=== PATIENT | female | born 1970 | race African-American/Black ===

== ENCOUNTER 2018-09-06 10:50 | Inpatient (IN) | payer MEDICAID ==
[~2018-09-06] VITALS: Ht 162.6 cm; Wt 58.5 kg
[~2018-09-06 10:50] MED LIST: ALBU25PO2 MC; BECL8.7A6 IH; GABA-529 PO; HUMALOG; MULT-1116 PO; SIMV10TA6 PO
[2018-09-06] MEDS ORDERED: SODIUM CHLORIDE 0.9% 1,000 ML IV ONE ×2 (11:05→13:17)
[2018-09-06 11:27] LABS: BG BASE EXCESS -0.2 mmol/L (-2.0-2.0); BG CARBOXYHEMOGLOBIN 1.3 % (0.5-1.5); BG DEOXYHEMOGLOBIN 4.8 % (0.0-5.0); BG HCO3 ACT 24.7 mmol/L (22.0-26.0); BG METHEMOGLOBIN 0.3 % (0.0-1.5); BG OXYGEN SATURATION 95.1 % (92.0-98.5); BG OXYHEMOGLOBIN 93.6 % (94.0-97.0); BG PCO2 41.3 mmHg (35.0-45.0); BG PH 7.395 (7.350-7.450); BG PO2 78.8 mmHg (75.0-100.0); BG SAMPLE SITE RIGHT RADIAL; BG TOTAL HEMOGLOBIN 15.7 g/dL (12.0-18.0); BG VENT MODE ROOM AIR
[2018-09-06] MEDS ORDERED: ONDANSETRON HCL 4MG/2ML INJ IV ONE (12:15)
[2018-09-06 12:35] LABS: BASOPHILS % 1.4 % (0.0-2.0); EOSINOPHILS % 3.5 % (0.0-5.0); HEMATOCRIT. 50.6 % (36.0-48.0); HEMOGLOBIN. 16.1 g/dL (12.0-16.0); LYMPHOCYTES % 29.5 % (20.0-50.0); MEAN CORPUSCULAR HEMOGLOBIN 27.9 pg (28.0-32.0); MEAN CORPUSCULAR VOLUME 87.6 fL (81.0-99.0); MEAN PLATELET VOLUME 10.7 fl (7.4-10.4); MONOCYTES % 9.6 % (2.0-8.0); PLATELET 277 x1000/uL (130-400); RED BLOOD CELL COUNT 5.77 mill/uL (4.2-5.4); RED CELL DISTRIBUTION WIDTH 13.4 % (11.6-14.6)
[2018-09-06 12:49] LABS: CHLORIDE 80 mEq/L (98-107)
[2018-09-06 13:00] LABS: BETA HYDROXYBUTYRATE 5.3 mMol/L (0.0-0.3)
[2018-09-06] MEDS ORDERED: INSULIN REGULAR (HUMULIN R) 300UNITS/3ML IV ONE ×2 (13:30→13:45)
[2018-09-06 15:47] VITALS: BP 110/68
[2018-09-06] MEDS ORDERED: DEXTROSE 50% WATER 50ML SYRINGE IV PRN (16:45)
[2018-09-06] MEDS ORDERED: ONDANSETRON HCL 4MG/2ML INJ IV PRN (16:45)
[2018-09-06] MEDS: BLOOD SUGAR DIAGNOSTIC STRIP TEST SCH ×2 (17:18→21:22)
[2018-09-06] MEDS: ACETAMINOPHEN 325MG TABLET PO PRN ×2 (17:54→22:05)
[2018-09-06] MEDS: INSULIN LISPRO 100 UNITS/ML SUBCUT SCH ×2 (17:55→21:39)
[2018-09-06] MEDS ORDERED: SODIUM CHLORIDE 0.45% 1,000 ML IV SCH (18:00)
[2018-09-06 18:31] LABS: CHLORIDE 95 mEq/L (98-107)
[2018-09-06 20:00] VITALS: BP 104/61
[2018-09-06] MEDS: SODIUM CHLORIDE 0.45% 1,000 ML IV SCH (21:30)
[2018-09-06] MEDS ORDERED: INSULIN GLARGINE UD 100 UNITS/ML SYR SUBCUT SCH ×2 (22:00)
[2018-09-07] VITALS: BP 98/57
[2018-09-07 04:00] VITALS: BP 105/60
[2018-09-07] MEDS: BLOOD SUGAR DIAGNOSTIC STRIP TEST SCH (06:23)
[2018-09-07] MEDS: SODIUM CHLORIDE 0.45% 1,000 ML IV SCH (06:26)
[2018-09-07] MEDS: INSULIN LISPRO 100 UNITS/ML SUBCUT SCH (06:34)
[2018-09-07 07:48] LABS: BASOPHILS % 1.3 % (0.0-2.0); EOSINOPHILS % 4.6 % (0.0-5.0); HEMATOCRIT. 41.5 % (36.0-48.0); HEMOGLOBIN. 13.4 g/dL (12.0-16.0); LYMPHOCYTES % 37.1 % (20.0-50.0); MEAN CORPUSCULAR HEMOGLOBIN 27.6 pg (28.0-32.0); MEAN CORPUSCULAR VOLUME 85.6 fL (81.0-99.0); MEAN PLATELET VOLUME 9.7 fl (7.4-10.4); MONOCYTES % 12.1 % (2.0-8.0); NEUTROPHILS % 44.9 % (40.0-76.0); PLATELET 251 x1000/uL (130-400); RED BLOOD CELL COUNT 4.85 mill/uL (4.2-5.4); RED CELL DISTRIBUTION WIDTH 13.4 % (11.6-14.6)
[2018-09-07 08:27] LABS: CHLORIDE 97 mEq/L (98-107)
[2018-09-07 08:30] VITALS: BP 94/58
[2018-09-07 09:47] VITALS: BP 94/60
[2018-09-07] MEDS: ACETAMINOPHEN 325MG TABLET PO PRN (09:57)
[2018-12-22] MEDS ORDERED: ONDA4TAB5 MT ×2 (18:16)
[2018-12-22] MEDS ORDERED: METO-293 MT (18:16)
== END 2018-09-07 12:00 | disposition home or self-care (01) | DRG 420 ==
LOC: ER 11:29 → 8WST 13:36 → ENRESERV 14:08
PROVIDERS: ADMIT Internal Medicine; ATTEND Internal Medicine
DX: E10.65 Type 1 diabetes mellitus with hyperglycemia (principal); E87.8 Other disorders of electrolyte and fluid balance, not elsewhere classified; E87.5 Hyperkalemia; E87.1 Hypo-osmolality and hyponatremia; J45.909 Unspecified asthma, uncomplicated; Z79.4 Long term (current) use of insulin; Z79.51 Long term (current) use of inhaled steroids; Z79.899 Other long term (current) drug therapy
CPT/HCPCS: 36415; 36600; 71045; 80048; 81025; 82010; 82375; 82805; 82962; 84484; 93005; 96361; 96372; 96374; 99285; J1815; J2405; J7030

== ENCOUNTER 2018-12-20 00:46 | Inpatient (IN) | payer MEDICAID ==
[~2018-12-20] VITALS: Ht 160 cm; Wt 59.9 kg
[2018-12-20] VITALS (14 sets, daily range): BP systolic 91–129; BP diastolic 54–91
[2018-12-20] MEDS ORDERED: SODIUM CHLORIDE 0.9% 1,000 ML IV ONE ×2 (01:36→04:44)
[2018-12-20] MEDS ORDERED: ONDANSETRON HCL 4MG/2ML INJ IV STA (01:36)
[2018-12-20 02:23] LABS: CLARITY URINE CLEAR (CLEAR); COLOR URINE YELLOW (YELLOW); KETONES URINE 4+ (NEGATIVE); LEUKOCYTE ESTERASE URINE NEGATIVE (NEGATIVE); NITRITE URINE NEGATIVE (NEGATIVE); OCCULT BLOOD URINE 1+ (NEGATIVE); PROTEIN URINE NEGATIVE (NEGATIVE); SPECIFIC GRAVITY URINE 1.023 (1.005-1.030); UROBILINOGEN URINE 0.2 E.U./dL (0.2-1.0)
[2018-12-20 02:41] LABS: BASOPHILS % 0.9 % (0.0-2.0); EOSINOPHILS % 0.1 % (0.0-5.0); HEMATOCRIT. 44.7 % (36.0-48.0); HEMOGLOBIN. 14.2 g/dL (12.0-16.0); LYMPHOCYTES % 7.2 % (20.0-50.0); MEAN CORPUSCULAR HEMOGLOBIN 27.9 pg (28.0-32.0); MEAN CORPUSCULAR VOLUME 87.9 fL (81.0-99.0); MEAN PLATELET VOLUME 10.2 fl (7.4-10.4); MONOCYTES % 9.6 % (2.0-8.0); NEUTROPHILS % 82.2 % (40.0-76.0); PLATELET 296 x1000/uL (130-400); RED BLOOD CELL COUNT 5.08 mill/uL (4.2-5.4); RED CELL DISTRIBUTION WIDTH 14.1 % (11.6-14.6)
[2018-12-20 02:46] LABS: CHLORIDE 84 mEq/L (98-107)
[2018-12-20 03:06] LABS: HCG SCREEN NEGATIVE
[2018-12-20 03:25] LABS: BETA HYDROXYBUTYRATE 11.7 mMol/L (0.0-0.3)
[2018-12-20] MEDS ORDERED: INSULIN REGULAR (HUMULIN R) 300UNITS/3ML IV ONE (03:45)
[2018-12-20] MEDS ORDERED: IPRATROPIUM BROMIDE (0.02%) 0.5MG/2.5ML NEB HHN STA (03:54)
[2018-12-20] MEDS ORDERED: ALBUTEROL (0.083%) 2.5MG/3ML NEB HHN STA (03:54)
[2018-12-20] MEDS ORDERED: IPRATROPIUM/ALBUTEROL 0.5-3(2.5)MG/3ML NEB ONE (04:09)
[2018-12-20] MEDS ORDERED: ALBUTEROL (0.5%) 2.5MG/0.5ML NEB HHN ONE (04:09)
[2018-12-20] MEDS ORDERED: ONDANSETRON HCL 4MG/2ML INJ IV SCH (04:39)
[2018-12-20] MEDS ORDERED: IBUPROFEN 600MG TABLET PO PRN (05:00)
[2018-12-20] MEDS ORDERED: INSULIN REGULAR (HUMULIN R) 300UNITS/3ML SUBCUT SCH (05:34)
[2018-12-20] MEDS ORDERED: CEFTRIAXONE 1 G PREMIX 50 ML IV SCH (06:00)
[2018-12-20] MEDS ORDERED: DEXTROSE 50% WATER 50ML SYRINGE IV PRN ×3 (07:45→17:00)
[2018-12-20] MEDS ORDERED: DOCUSATE SODIUM 100MG CAPSULE PO PRN (08:00)
[2018-12-20] MEDS ORDERED: IPRATROPIUM/ALBUTEROL 0.5-3(2.5)MG/3ML NEB INH PRN (08:00)
[2018-12-20] MEDS ORDERED: NA PHOS,M-B/NA PHOS,DI-BA ENEMA 118ML PR PRN (08:00)
[2018-12-20] MEDS ORDERED: GUAIFENESIN 200MG/10ML SUGAR FREE UDC PO PRN (08:00)
[2018-12-20] MEDS ORDERED: MAGNESIUM/ALUMINUM HYDROXIDE/SIMETHICONE 30ML UDC PO PRN (08:00)
[2018-12-20] MEDS ORDERED: DIPHENHYDRAMINE 50MG/ML VIAL IV PRN (08:00)
[2018-12-20] MEDS ORDERED: CLONIDINE 0.1MG TABLET PO PRN (08:00)
[2018-12-20] MEDS ORDERED: ACETAMINOPHEN 650MG SUPP PR PRN (08:00)
[2018-12-20] MEDS ORDERED: ACETAMINOPHEN 650MG/20.3ML UDC GT PRN (08:00)
[2018-12-20] MEDS ORDERED: SODIUM CHLORIDE 0.45% 1,000 ML IV SCH (08:00)
[2018-12-20] MEDS ORDERED: ACETAMINOPHEN 325MG TABLET PO PRN (08:00)
[2018-12-20] MEDS: BLOOD SUGAR DIAGNOSTIC STRIP TEST SCH ×4 (08:33→21:00)
[2018-12-20] MEDS: ENOXAPARIN 40MG/0.4ML SYR SUBCUT SCH (09:00)
[2018-12-20 09:54] LABS: BASOPHILS % 0.5 % (0.0-2.0); HEMOGLOBIN. 13.9 g/dL (12.0-16.0); LYMPHOCYTES % 10.2 % (20.0-50.0); MEAN CORPUSCULAR HEMOGLOBIN 27.7 pg (28.0-32.0); MONOCYTES % 11.2 % (2.0-8.0); NEUTROPHILS % 78.1 % (40.0-76.0); RED CELL DISTRIBUTION WIDTH 13.9 % (11.6-14.6)
[2018-12-20 10:00] LABS: CHLORIDE 100 mEq/L (98-107)
[2018-12-20] MEDS ORDERED: INSULIN REGULAR (DRIP) 100 UNITS in SODIUM CHLORIDE 0.9% 99 ML IV SCH (10:00)
[2018-12-20 10:06] LABS: BG BASE EXCESS -3.6 mmol/L (-2.0-2.0); BG DEOXYHEMOGLOBIN 4.2 % (0.0-5.0); BG FRACTION INSPIRED OXYGEN 21; BG HCO3 ACT 20.8 mmol/L (22.0-26.0); BG METHEMOGLOBIN 0.8 % (0.0-1.5); BG OXYGEN SATURATION 95.7 % (92.0-98.5); BG PCO2 35.5 mmHg (35.0-45.0); BG PH 7.385 (7.350-7.450); BG PO2 76.9 mmHg (75.0-100.0); BG SAMPLE SITE RIGHT BRACHIAL; BG TOTAL HEMOGLOBIN 13.3 g/dL (12.0-18.0); BG VENT MODE ROOM AIR
[2018-12-20 10:15] LABS: PLATELET 99 x1000/uL (130-400)
[2018-12-20 14:18] LABS: *AMPHETAMINES SCREEN URINE NEGATIVE (NEGATIVE); *BARBITURATES SCREEN URINE NEGATIVE (NEGATIVE); *BENZODIAZEPINES SCREEN URINE NEGATIVE (NEGATIVE); *COCAINE SCREEN URINE NEGATIVE (NEGATIVE)
[2018-12-20 14:19] LABS: CANNABINOID URINE SCREEN NEGATIVE (NEGATIVE); METHADONE URINE SCREEN NEGATIVE (NEGATIVE); OPIATES URINE SCREEN NEGATIVE (NEGATIVE); PHENCYCLIDINE URINE SCREEN NEGATIVE (NEGATIVE)
[2018-12-20] MEDS: SODIUM CHLORIDE 0.9% INJ 3ML FLUSH IVF SCH ×2 (14:43→21:30)
[2018-12-20] MEDS: DEXT 5%/0.45% NACL 1000ML 1,000 ML IV SCH (15:15)
[2018-12-20 15:48] LABS: CHLORIDE 100 mEq/L (98-107)
[2018-12-20] MEDS: INSULIN LISPRO 100 UNITS/ML SUBCUT SCH ×2 (17:00→21:29)
[2018-12-20] MEDS: HYDROCODONE/ACETAMINOPHEN 5/325MG TABLET PO PRN (18:23)
[2018-12-20] MEDS: INSULIN GLARGINE UD 100 UNITS/ML SYR SUBCUT SCH ×2 (18:24→21:29)
[2018-12-21] VITALS (9 sets, daily range): BP systolic 91–125; BP diastolic 49–74
[2018-12-21] MEDS: DEXT 5%/0.45% NACL 1000ML 1,000 ML IV SCH ×3 (01:36→21:45)
[2018-12-21] MEDS: HYDROCODONE/ACETAMINOPHEN 5/325MG TABLET PO PRN ×3 (03:53→20:55)
[2018-12-21 05:47] LABS: BASOPHILS % 0.8 % (0.0-2.0); EOSINOPHILS % 1.6 % (0.0-5.0); HEMATOCRIT. 37.8 % (36.0-48.0); HEMOGLOBIN. 12.4 g/dL (12.0-16.0); LYMPHOCYTES % 19.1 % (20.0-50.0); MEAN CORPUSCULAR HEMOGLOBIN 27.5 pg (28.0-32.0); MEAN PLATELET VOLUME 8.9 fl (7.4-10.4); MONOCYTES % 12.5 % (2.0-8.0); PLATELET 267 x1000/uL (130-400); RED CELL DISTRIBUTION WIDTH 14.1 % (11.6-14.6)
[2018-12-21 05:59] LABS: CHLORIDE 97 mEq/L (98-107)
[2018-12-21] MEDS: SODIUM CHLORIDE 0.9% INJ 3ML FLUSH IVF SCH ×3 (06:05→20:55)
[2018-12-21] MEDS: BLOOD SUGAR DIAGNOSTIC STRIP TEST SCH ×4 (06:06→20:36)
[2018-12-21 06:09] LABS: LDL CHOLESTEROL 114 mg/dL (5-100)
[2018-12-21 06:11] LABS: HDL CHOLESTEROL 78 mg/dL (40-59)
[2018-12-21] MEDS: INSULIN LISPRO 100 UNITS/ML SUBCUT SCH ×4 (06:17→20:58)
[2018-12-21] MEDS: ENOXAPARIN 40MG/0.4ML SYR SUBCUT SCH (08:44)
[2018-12-21] MEDS: ONDANSETRON HCL 4MG/2ML INJ IV PRN ×2 (10:37→17:24)
[2018-12-21] MEDS: INSULIN GLARGINE UD 100 UNITS/ML SYR SUBCUT SCH (21:48)
[2018-12-22] VITALS (7 sets, daily range): BP systolic 100–117; BP diastolic 53–78
[2018-12-22] MEDS: ONDANSETRON HCL 4MG/2ML INJ IV PRN (00:25)
[2018-12-22] MEDS: BLOOD SUGAR DIAGNOSTIC STRIP TEST SCH ×3 (06:06→17:43)
[2018-12-22] MEDS: SODIUM CHLORIDE 0.9% INJ 3ML FLUSH IVF SCH ×2 (06:14→17:43)
[2018-12-22] MEDS: DEXT 5%/0.45% NACL 1000ML 1,000 ML IV SCH ×2 (06:15→17:45)
[2018-12-22] MEDS: INSULIN LISPRO 100 UNITS/ML SUBCUT SCH ×4 (06:17→17:15)
[2018-12-22] MEDS: ENOXAPARIN 40MG/0.4ML SYR SUBCUT SCH (09:00)
[2018-12-22] MEDS ORDERED: METOCLOPRAMIDE HCL 10MG/2ML VIAL IV NR (12:15)
[2018-12-22] MEDS ORDERED: SODIUM CHLORIDE 0.9% 1,000 ML IV NR ×2 (12:15→12:30)
[2018-12-22] MEDS ORDERED: METO-293 MT (18:16)
[2018-12-22] MEDS ORDERED: ONDA4TAB5 MT ×2 (18:16)
== END 2018-12-22 19:25 | disposition home or self-care (01) | DRG 420 ==
LOC: ER 00:46 → MICUSO 04:54 → CANRESERV 10:57 → ENRESERV 10:57 → EDBEDREQSVC 12:18 → ENRESERV 12:50 → 5WST 12-21 03:41
PROVIDERS: ADMIT Family Medicine; ATTEND Family Medicine
DX: E10.10 Type 1 diabetes mellitus with ketoacidosis without coma (principal); E10.40 Type 1 diabetes mellitus with diabetic neuropathy, unspecified; E44.1 Mild protein-calorie malnutrition; E86.0 Dehydration; J45.909 Unspecified asthma, uncomplicated; E78.5 Hyperlipidemia, unspecified; Z68.23 Body mass index [BMI] 23.0-23.9, adult; Z91.048 Other nonmedicinal substance allergy status; Z79.899 Other long term (current) drug therapy
CPT/HCPCS: 36415; 36600; 71045; 74018; 76700; 80048; 80061; 80305; 82010; 82375; 82805; 82962; 84703; 93005; 96365; 96372; 96375; 99285; J0696; J1650; J1815; J2405; J2765; J7030; J7050; J7611; J7620

== ENCOUNTER 2019-08-07 17:54 | Emergency (ER) | payer MEDICAID ==
[~2019-08-07] VITALS: Ht 160 cm; Wt 54.2 kg
[~2019-08-07 17:54] MED LIST changes: +METO-293 MT; +ONDA4TAB5 MT
[2019-08-07] MEDS ORDERED: SODIUM CHLORIDE 0.9% 1,000 ML IV ONE ×2 (18:50→20:06)
[2019-08-07 19:12] LABS: BASOPHILS % 1.2 % (0.0-2.0); EOSINOPHILS % 4.4 % (0.0-5.0); HEMATOCRIT. 44.7 % (36.0-48.0); HEMOGLOBIN. 14.3 g/dL (12.0-16.0); LYMPHOCYTES % 35.5 % (20.0-50.0); MEAN CORPUSCULAR HEMOGLOBIN 27.6 pg (28.0-32.0); MEAN CORPUSCULAR VOLUME 86.6 fL (81.0-99.0); MEAN PLATELET VOLUME 9.2 fl (7.4-10.4); MONOCYTES % 12.2 % (2.0-8.0); NEUTROPHILS % 46.7 % (40.0-76.0); PLATELET 285 x1000/uL (130-400); RED BLOOD CELL COUNT 5.16 mill/uL (4.2-5.4); RED CELL DISTRIBUTION WIDTH 13.6 % (11.6-14.6)
[2019-08-07 19:17] LABS: CHLORIDE 92 mEq/L (98-107)
[2019-08-07 19:19] LABS: INR 1.1; PROTHROMBIN TIME 10.9 sec (9.6-11.0)
[2019-08-07 20:54] LABS: CLARITY URINE CLEAR (CLEAR); COLOR URINE YELLOW (YELLOW); KETONES URINE NEGATIVE (NEGATIVE); LEUKOCYTE ESTERASE URINE NEGATIVE (NEGATIVE); NITRITE URINE NEGATIVE (NEGATIVE); OCCULT BLOOD URINE NEGATIVE (NEGATIVE); PROTEIN URINE NEGATIVE (NEGATIVE); SPECIFIC GRAVITY URINE 1.041 (1.005-1.030); UROBILINOGEN URINE 0.2 E.U./dL (0.2-1.0)
[2019-08-08 01:36] VITALS: BP 100/69
== END 2019-08-08 01:38 | disposition home or self-care (01) ==
LOC: ER 19:42
DX: E11.65 Type 2 diabetes mellitus with hyperglycemia (principal); R11.2 Nausea with vomiting, unspecified; J45.909 Unspecified asthma, uncomplicated; K21.9 Gastro-esophageal reflux disease without esophagitis; Z91.048 Other nonmedicinal substance allergy status; Z90.710 Acquired absence of both cervix and uterus; Z79.899 Other long term (current) drug therapy
CPT/HCPCS: 36415; 71045; 80053; 81003; 81025; 82962; 83690; 83880; 84484; 85025; 85610; 96360; 96361; 99284; J7030; Z7610

== ENCOUNTER 2019-08-30 13:25 | Inpatient (IN) | payer MEDICAID ==
[~2019-08-30] VITALS: Ht 162.6 cm; Wt 54.0 kg
[2019-08-30 05:33] VITALS: BP 105/70
[2019-08-30] MEDS ORDERED: SODIUM CHLORIDE 0.9% 1,000 ML IV ONE ×4 (15:15→18:00)
[2019-08-30] MEDS ORDERED: ONDANSETRON HCL 4MG/2ML INJ IV STA (15:15)
[2019-08-30 17:11] LABS: HEMATOCRIT. 49.7 % (36.0-48.0); HEMOGLOBIN. 15.6 g/dL (12.0-16.0); MEAN CORPUSCULAR HEMOGLOBIN 27.6 pg (28.0-32.0); MEAN CORPUSCULAR VOLUME 88.1 fL (81.0-99.0); MEAN PLATELET VOLUME 10.2 fl (7.4-10.4); PLATELET 254 x1000/uL (130-400); RED BLOOD CELL COUNT 5.64 mill/uL (4.2-5.4); RED CELL DISTRIBUTION WIDTH 13.6 % (11.6-14.6)
[2019-08-30 17:14] LABS: CLARITY URINE CLEAR (CLEAR); COLOR URINE YELLOW (YELLOW); KETONES URINE 4+ (NEGATIVE); LEUKOCYTE ESTERASE URINE NEGATIVE (NEGATIVE); NITRITE URINE NEGATIVE (NEGATIVE); OCCULT BLOOD URINE NEGATIVE (NEGATIVE); PROTEIN URINE NEGATIVE (NEGATIVE); SPECIFIC GRAVITY URINE 1.028 (1.005-1.030); UROBILINOGEN URINE 0.2 E.U./dL (0.2-1.0)
[2019-08-30 17:18] LABS: CHLORIDE 86 mEq/L (98-107)
[2019-08-30 17:22] LABS: ETHANOL BLOOD < 10 mg/dL
[2019-08-30 17:31] LABS: *AMPHETAMINES SCREEN URINE NEGATIVE (NEGATIVE); *COCAINE SCREEN URINE NEGATIVE (NEGATIVE); CANNABINOID URINE SCREEN NEGATIVE (NEGATIVE); METHADONE URINE SCREEN NEGATIVE (NEGATIVE); OPIATES URINE SCREEN NEGATIVE (NEGATIVE); PHENCYCLIDINE URINE SCREEN NEGATIVE (NEGATIVE)
[2019-08-30 17:32] LABS: *BARBITURATES SCREEN URINE NEGATIVE (NEGATIVE); *BENZODIAZEPINES SCREEN URINE NEGATIVE (NEGATIVE)
[2019-08-30 17:35] LABS: PLATELET ESTIMATE NORMAL
[2019-08-30] MEDS ORDERED: INSULIN REGULAR (DRIP) 100 UNITS in SODIUM CHLORIDE 0.9% 99 ML IV ONE (18:00)
[2019-08-30] MEDS ORDERED: INSULIN REGULAR (DRIP) 100 UNITS in SODIUM CHLORIDE 0.9% 99 ML IV SCH ×2 (18:15→23:00)
[2019-08-30] MEDS ORDERED: ACETAMINOPHEN 325MG TABLET PO PRN (18:45)
[2019-08-30] MEDS ORDERED: IPRATROPIUM/ALBUTEROL 0.5-3(2.5)MG/3ML NEB HHN PRN (18:45)
[2019-08-30] MEDS ORDERED: DIPHENHYDRAMINE 50MG/ML VIAL IV PRN (18:45)
[2019-08-30 20:00] LABS: PHOSPHORUS 6.4 mg/dL (2.5-4.9)
[2019-08-30 21:54] LABS: CHLORIDE 94 mEq/L (98-107)
[2019-08-30] MEDS ORDERED: PIPERACILLIN/TAZ 3.375G PREMIX 50 ML IV SCH (22:00)
[2019-08-30] MEDS ORDERED: HYDROMORPHONE HCL/PF 2MG/ML CPJ IV PRN (22:00)
[2019-08-30] MEDS ORDERED: INSULIN REGULAR (DRIP) 100 UNITS in SODIUM CHLORIDE 0.9% 99 ML IV PRN (22:15)
[2019-08-30] MEDS ORDERED: DEXTROSE 50% WATER 50ML SYRINGE IV PRN ×3 (22:30→23:00)
[2019-08-30 22:36] VITALS: BP 118/78
[2019-08-30 23:00] VITALS: BP 95/60
[2019-08-30] MEDS: BLOOD SUGAR DIAGNOSTIC STRIP TEST SCH (23:27)
[2019-08-30] MEDS: SODIUM CHLORIDE 0.9% 1,000 ML IV SCH (23:28)
[2019-08-30 23:30] VITALS: BP 84/50
[2019-08-30] MEDS: PIPERACILLIN/TAZOBACTAM 3.375 G in DEXT 5% WATER 100 ML IV SCH (23:46)
[2019-08-31] VITALS (31 sets, daily range): BP systolic 80–145; BP diastolic 52–115
[2019-08-31] MEDS: BLOOD SUGAR DIAGNOSTIC STRIP TEST SCH ×9 (00:29→21:44)
[2019-08-31 01:29] LABS: CHLORIDE 98 mEq/L (98-107)
[2019-08-31] MEDS ORDERED: DEXT 5%/0.9% NACL KCL 20MEQ/L 1,000 ML IV SCH (02:00)
[2019-08-31] MEDS: SODIUM CHLORIDE 0.9% 1,000 ML IV SCH (05:02)
[2019-08-31] MEDS: PIPERACILLIN/TAZOBACTAM 3.375 G in DEXT 5% WATER 100 ML IV SCH ×3 (05:05→21:41)
[2019-08-31 05:32] LABS: BASOPHILS % 0.7 % (0.0-2.0); EOSINOPHILS % 0.3 % (0.0-5.0); HEMATOCRIT. 37.6 % (36.0-48.0); HEMOGLOBIN. 12.4 g/dL (12.0-16.0); LYMPHOCYTES % 14.9 % (20.0-50.0); MEAN CORPUSCULAR HEMOGLOBIN 27.6 pg (28.0-32.0); MEAN CORPUSCULAR VOLUME 83.9 fL (81.0-99.0); MEAN PLATELET VOLUME 9.5 fl (7.4-10.4); MONOCYTES % 10.8 % (2.0-8.0); NEUTROPHILS % 73.3 % (40.0-76.0); PLATELET 229 x1000/uL (130-400); RED BLOOD CELL COUNT 4.48 mill/uL (4.2-5.4); RED CELL DISTRIBUTION WIDTH 13.6 % (11.6-14.6)
[2019-08-31 05:42] LABS: CHLORIDE 103 mEq/L (98-107)
[2019-08-31 05:55] LABS: LDL CHOLESTEROL 106 mg/dL (5-100)
[2019-08-31 05:57] LABS: HDL CHOLESTEROL 91 mg/dL (40-59)
[2019-08-31] MEDS: INSULIN GLARGINE UD 100 UNITS/ML SYR SUBCUT SCH ×2 (08:56→21:44)
[2019-08-31 11:25] LABS: CHLORIDE 104 mEq/L (98-107)
[2019-08-31 11:32] LABS: PHOSPHORUS 1.8 mg/dL (2.5-4.9)
[2019-08-31] MEDS ORDERED: DEXTROSE 50% WATER 50ML SYRINGE IV PRN (12:45)
[2019-08-31] MEDS: INSULIN LISPRO 100 UNITS/ML SUBCUT SCH ×3 (12:55→21:53)
[2019-08-31 12:57] LABS: HEPATITIS A AB IGM NEGATIVE (NEGATIVE)
[2019-08-31 15:49] LABS: HEPATITIS B SURFACE ANTIGEN NEGATIVE
[2019-09-01 04:00] VITALS: BP 121/87
[2019-09-01 05:08] LABS: HIV SCREEN 4G Non Reactive (Non Reactive)
[2019-09-01] MEDS: PIPERACILLIN/TAZOBACTAM 3.375 G in DEXT 5% WATER 100 ML IV SCH ×2 (06:04→14:00)
[2019-09-01] MEDS: BLOOD SUGAR DIAGNOSTIC STRIP TEST SCH ×2 (06:05→12:10)
[2019-09-01 07:33] LABS: BASOPHILS % 0.6 % (0.0-2.0); EOSINOPHILS % 0.6 % (0.0-5.0); HEMOGLOBIN. 12.3 g/dL (12.0-16.0); LYMPHOCYTES % 17.5 % (20.0-50.0); MEAN CORPUSCULAR VOLUME 84.2 fL (81.0-99.0); MONOCYTES % 8.9 % (2.0-8.0); NEUTROPHILS % 72.4 % (40.0-76.0); PLATELET 204 x1000/uL (130-400); RED BLOOD CELL COUNT 4.39 mill/uL (4.2-5.4); RED CELL DISTRIBUTION WIDTH 13.6 % (11.6-14.6)
[2019-09-01 07:39] LABS: CHLORIDE 101 mEq/L (98-107)
[2019-09-01 07:46] LABS: PHOSPHORUS 2.3 mg/dL (2.5-4.9)
[2019-09-01 08:00] VITALS: BP 121/78
[2019-09-01] MEDS: INSULIN LISPRO 100 UNITS/ML SUBCUT SCH ×2 (08:10→12:14)
[2019-09-01 12:00] VITALS: BP 141/92
[2019-09-01] MEDS: INSULIN GLARGINE UD 100 UNITS/ML SYR SUBCUT SCH (12:14)
[2019-09-01 13:54] VITALS: BP 137/91
[2019-09-01 14:10] LABS: T4 FREE 1.15 ng/dL (0.76-1.46)
== END 2019-09-01 15:40 | disposition home or self-care (01) | DRG 282 ==
LOC: ER 13:25 → EDBEDREQSVC 18:25 → EDBEDREQ 18:25 → EDBEDREQTM 18:25 → ENRESERV 21:21 → CVICU 21:58 → 7WST 08-31 23:17
PROVIDERS: ADMIT Internal Medicine; ATTEND Internal Medicine
DX: K85.90 Acute pancreatitis without necrosis or infection, unspecified (principal); R57.8 Other shock; E10.69 Type 1 diabetes mellitus with other specified complication; E10.65 Type 1 diabetes mellitus with hyperglycemia; D25.9 Leiomyoma of uterus, unspecified; K31.84 Gastroparesis; R00.0 Tachycardia, unspecified; K52.9 Noninfective gastroenteritis and colitis, unspecified; K76.0 Fatty (change of) liver, not elsewhere classified; E05.90 Thyrotoxicosis, unspecified without thyrotoxic crisis or storm; E87.0 Hyperosmolality and hypernatremia; E86.9 Volume depletion, unspecified; D72.821 Monocytosis (symptomatic); K21.9 Gastro-esophageal reflux disease without esophagitis; E10.43 Type 1 diabetes mellitus with diabetic autonomic (poly)neuropathy; J45.909 Unspecified asthma, uncomplicated; Z90.710 Acquired absence of both cervix and uterus; Z91.09 Other allergy status, other than to drugs and biological substances; Z79.899 Other long term (current) drug therapy
CPT/HCPCS: 36415; 71045; 74176; 80048; 80053; 80061; 80305; 80320; 81003; 82962; 83036; 83735; 84100; 84439; 84443; 84481; 85025; 86705; 86709; 86803; 87340; 87389; 93005; 93970; 99291; J1170; J1815; J2405; J2543; J7030; J7050; J7060; G0480

== ENCOUNTER 2019-11-26 12:05 | Inpatient (IN) | payer MEDICAID ==
[~2019-11-26] VITALS: Ht 160 cm; Wt 58.5 kg
[~2019-11-26 12:05] MED LIST changes: -SIMV10TA6 PO; +SIMV10TA97 PO
[2019-11-26] MEDS ORDERED: INSULIN REGULAR (HUMULIN R) UD 100 UNITS/ML SYR IV ONE (14:15)
[2019-11-26] MEDS ORDERED: SODIUM CHLORIDE 0.9% 2,000 ML IV ONE (14:15)
[2019-11-26] MEDS ORDERED: INSULIN REGULAR (HUMULIN R) 300UNITS/3ML IV SCH (14:30)
[2019-11-26 14:53] LABS: HEMATOCRIT. 46.3 % (36.0-48.0); HEMOGLOBIN. 14.8 g/dL (12.0-16.0); MEAN CORPUSCULAR HEMOGLOBIN 27.9 pg (28.0-32.0); MEAN CORPUSCULAR VOLUME 87.5 fL (81.0-99.0); MEAN PLATELET VOLUME 9.7 fl (7.4-10.4); PLATELET 345 x1000/uL (130-400); RED BLOOD CELL COUNT 5.29 mill/uL (4.2-5.4)
[2019-11-26 15:05] LABS: CHLORIDE 85 mEq/L (98-107)
[2019-11-26 15:06] LABS: PLATELET ESTIMATE NORMAL
[2019-11-26] MEDS ORDERED: INSULIN REGULAR (DRIP) 100 UNITS in SODIUM CHLORIDE 0.9% 99 ML IV NR ×2 (15:45→16:00)
[2019-11-26] MEDS ORDERED: INSULIN REGULAR (HUMULIN R) 300UNITS/3ML IV NR (15:45)
[2019-11-26] MEDS ORDERED: SODIUM CHLORIDE 0.9% 1,000 ML IV ONE (15:45)
[2019-11-26] MEDS ORDERED: ONDANSETRON HCL 4MG/2ML INJ IV ONE (17:15)
[2019-11-26 18:43] LABS: CHLORIDE 98 mEq/L (98-107)
[2019-11-26 19:54] LABS: BG BASE EXCESS -8.8 mmol/L (-2.0-2.0); BG CARBOXYHEMOGLOBIN 0.5 % (0.5-1.5); BG DEOXYHEMOGLOBIN 5.5 % (0.0-5.0); BG FRACTION INSPIRED OXYGEN 21; BG HCO3 ACT 15.7 mmol/L (22.0-26.0); BG METHEMOGLOBIN 0.2 % (0.0-1.5); BG OXYGEN SATURATION 94.5 % (92.0-98.5); BG OXYHEMOGLOBIN 93.8 % (94.0-97.0); BG PCO2 30.1 mmHg (35.0-45.0); BG PH 7.336 (7.350-7.450); BG PO2 75.6 mmHg (75.0-100.0); BG SAMPLE SITE RIGHT BRACHIAL; BG TOTAL HEMOGLOBIN 12.8 g/dL (12.0-18.0); BG VENT MODE ROOM AIR
[2019-11-26] MEDS ORDERED: DIPHENHYDRAMINE 50MG/ML VIAL IV PRN (21:00)
[2019-11-26] MEDS ORDERED: DEXTROSE 50% WATER 50ML SYRINGE IV PRN (21:00)
[2019-11-26] MEDS ORDERED: HYDROCODONE/ACETAMINOPHEN 10/325MG TABLET PO PRN (23:37)
[2019-11-26] MEDS ORDERED: ONDANSETRON HCL 4MG/2ML INJ IV PRN (23:37)
[2019-11-26] MEDS ORDERED: MAGNESIUM/ALUMINUM HYDROXIDE/SIMETHICONE 30ML UDC PO PRN (23:38)
[2019-11-26] MEDS ORDERED: CLONIDINE 0.1MG TABLET PO PRN (23:38)
[2019-11-26] MEDS ORDERED: DOCUSATE SODIUM 100MG CAPSULE PO PRN (23:38)
[2019-11-26] MEDS ORDERED: LORAZEPAM 2MG/ML CPJ IV PRN (23:39)
[2019-11-26] MEDS ORDERED: IPRATROPIUM/ALBUTEROL 0.5-3(2.5)MG/3ML NEB HHN PRN (23:39)
[2019-11-26] MEDS ORDERED: GUAIFENESIN 200MG/10ML SUGAR FREE UDC PO PRN (23:39)
[2019-11-26 23:40] VITALS: BP 108/62
[2019-11-26] MEDS ORDERED: HYDRALAZINE 20MG/ML VIAL IV PRN (23:40)
[2019-11-26] MEDS ORDERED: MORPHINE SULFATE 2 MG/ML CPJ (NOT FOR IM USE) IV PRN (23:40)
[2019-11-27] VITALS (18 sets, daily range): BP systolic 90–134; BP diastolic 40–88
[2019-11-27] MEDS ORDERED: DEXTROSE 50% WATER 50ML SYRINGE IV PRN ×2
[2019-11-27] MEDS: BLOOD SUGAR DIAGNOSTIC STRIP TEST SCH ×11 (01:00→20:17)
[2019-11-27] MEDS: SODIUM CHLORIDE 0.45% 1,000 ML IV SCH ×4 (01:04→18:00)
[2019-11-27] MEDS: SODIUM CHLORIDE 0.9% INJ 3ML FLUSH IVF SCH ×3 (05:27→21:34)
[2019-11-27 05:38] LABS: BASOPHILS % 0.7 % (0.0-2.0); EOSINOPHILS % 0.7 % (0.0-5.0); HEMOGLOBIN. 12.8 g/dL (12.0-16.0); LYMPHOCYTES % 18.5 % (20.0-50.0); MEAN CORPUSCULAR HEMOGLOBIN 28.1 pg (28.0-32.0); MEAN CORPUSCULAR VOLUME 85.6 fL (81.0-99.0); MEAN PLATELET VOLUME 9.2 fl (7.4-10.4); MONOCYTES % 13.2 % (2.0-8.0); NEUTROPHILS % 66.9 % (40.0-76.0); PLATELET 279 x1000/uL (130-400); RED BLOOD CELL COUNT 4.56 mill/uL (4.2-5.4); RED CELL DISTRIBUTION WIDTH 13.9 % (11.6-14.6)
[2019-11-27 05:41] LABS: CHLORIDE 102 mEq/L (98-107)
[2019-11-27 05:53] LABS: CREATINE KINASE 82 IU/L (26-192)
[2019-11-27 05:56] LABS: CREATINE KINASE MB FRACTION < 1.0 ng/mL (0.5-3.6)
[2019-11-27] MEDS: INSULIN LISPRO 100 UNITS/ML SUBCUT SCH ×4 (08:20→20:17)
[2019-11-27] MEDS: ENOXAPARIN 40MG/0.4ML SYR SUBCUT SCH (08:57)
[2019-11-27] MEDS: INSULIN GLARGINE UD 100 UNITS/ML SYR SUBCUT SCH (10:21)
[2019-11-27] MEDS: ACETAMINOPHEN 325MG TABLET PO PRN (10:40)
[2019-11-27] MEDS ORDERED: FLUCONAZOLE 150MG TABLET PO NR (11:00)
[2019-11-27 19:03] LABS: CREATINE KINASE 97 IU/L (26-192)
[2019-11-27 19:04] LABS: CREATINE KINASE MB FRACTION < 1.0 ng/mL (0.5-3.6)
[2019-11-27] MEDS: HYDROCORTISONE 2.5% RECTAL CREAM 30GM PR SCH (20:17)
[2019-11-28] VITALS (7 sets, daily range): BP systolic 110–137; BP diastolic 69–86
[2019-11-28] MEDS: SODIUM CHLORIDE 0.45% 1,000 ML IV SCH ×4 (02:30→21:28)
[2019-11-28] MEDS: SODIUM CHLORIDE 0.9% INJ 3ML FLUSH IVF SCH ×3 (05:16→21:29)
[2019-11-28] MEDS: BLOOD SUGAR DIAGNOSTIC STRIP TEST SCH ×4 (05:16→20:02)
[2019-11-28 06:53] LABS: CHLORIDE 99 mEq/L (98-107)
[2019-11-28] MEDS: INSULIN LISPRO 100 UNITS/ML SUBCUT SCH ×4 (07:51→20:03)
[2019-11-28] MEDS: ACETAMINOPHEN 325MG TABLET PO PRN ×2 (08:02→20:04)
[2019-11-28 09:20] LABS: HEMATOCRIT. 37.6 % (36.0-48.0); HEMOGLOBIN. 12.5 g/dL (12.0-16.0); MEAN CORPUSCULAR HEMOGLOBIN 28.2 pg (28.0-32.0); MEAN CORPUSCULAR VOLUME 85.2 fL (81.0-99.0); MEAN PLATELET VOLUME 8.6 fl (7.4-10.4); PLATELET 256 x1000/uL (130-400); RED BLOOD CELL COUNT 4.41 mill/uL (4.2-5.4); RED CELL DISTRIBUTION WIDTH 14.1 % (11.6-14.6)
[2019-11-28] MEDS: ENOXAPARIN 40MG/0.4ML SYR SUBCUT SCH (09:25)
[2019-11-28 10:12] LABS: PLATELET ESTIMATE NORMAL
[2019-11-28] MEDS: HYDROCORTISONE 2.5% RECTAL CREAM 30GM PR SCH ×2 (10:26→20:04)
[2019-11-28] MEDS: INSULIN GLARGINE UD 100 UNITS/ML SYR SUBCUT SCH (11:53)
[2019-11-28] MEDS: DIPHENHYDRAMINE 25MG CAPSULE PO PRN (21:41)
[2019-11-29 04:00] VITALS: BP 116/72
[2019-11-29] MEDS: SODIUM CHLORIDE 0.45% 1,000 ML IV SCH (04:14)
[2019-11-29] MEDS: SODIUM CHLORIDE 0.9% INJ 3ML FLUSH IVF SCH (06:00)
[2019-11-29 08:00] VITALS: BP 120/76
[2019-11-29] MEDS: INSULIN LISPRO 100 UNITS/ML SUBCUT SCH (08:10)
[2019-11-29] MEDS: BLOOD SUGAR DIAGNOSTIC STRIP TEST SCH (08:18)
[2019-11-29] MEDS: ACETAMINOPHEN 325MG TABLET PO PRN (09:42)
[2019-11-29] MEDS: HYDROCORTISONE 2.5% RECTAL CREAM 30GM PR SCH (09:43)
[2019-11-29] MEDS: ENOXAPARIN 40MG/0.4ML SYR SUBCUT SCH (09:44)
[2019-11-29] MEDS: INSULIN GLARGINE UD 100 UNITS/ML SYR SUBCUT SCH (09:44)
[2019-11-29] MEDS: DIPHENHYDRAMINE 25MG CAPSULE PO PRN (09:48)
[2019-11-29 12:00] VITALS: BP 129/79
[2019-11-29 13:35] VITALS: BP 120/76
== END 2019-11-29 14:40 | disposition home or self-care (01) | DRG 420 ==
LOC: ER 12:05 → CVICU 18:08 → ENRESERV 20:02 → EDBEDREQTM 21:26 → EDBEDREQSVC 21:26 → 7WST 11-27 20:46
PROVIDERS: ADMIT Internal Medicine; ATTEND Internal Medicine
DX: E11.10 Type 2 diabetes mellitus with ketoacidosis without coma (principal); E87.2 Acidosis; R65.10 Systemic inflammatory response syndrome (SIRS) of non-infectious origin without acute organ dysfunction; E87.5 Hyperkalemia; E86.0 Dehydration; F17.200 Nicotine dependence, unspecified, uncomplicated; I10 Essential (primary) hypertension; J45.909 Unspecified asthma, uncomplicated; K64.9 Unspecified hemorrhoids; N76.0 Acute vaginitis; K21.9 Gastro-esophageal reflux disease without esophagitis; Z90.710 Acquired absence of both cervix and uterus; E87.1 Hypo-osmolality and hyponatremia
CPT/HCPCS: 36415; 36600; 71045; 80048; 80053; 82010; 82375; 82550; 82553; 82805; 82962; 83036; 83880; 84484; 85025; 93005; 93970; 94640; 96361; 96365; 96375; 99291; J1650; J1815; J2405; J7030; J7050; Q0163

== ENCOUNTER 2020-05-12 18:59 | Emergency (ER) | payer MEDICAID ==
[~2020-05-12] VITALS: Ht 162.6 cm; Wt 58.9 kg
[2020-05-12] MEDS ORDERED: GABAPENTIN 300MG CAPSULE PO ONE (21:00)
[2020-05-12] MEDS ORDERED: INSULIN REGULAR (HUMULIN R) 300UNITS/3ML SUBCUT ONE (21:45)
[2020-05-12 22:10] LABS: BASOPHILS % 1.7 % (0.0-2.0); CHLORIDE 99 mEq/L (98-107); EOSINOPHILS % 6.3 % (0.0-5.0); HEMATOCRIT. 43.8 % (36.0-48.0); HEMOGLOBIN. 14.3 g/dL (12.0-16.0); LYMPHOCYTES % 31.2 % (20.0-50.0); MEAN CORPUSCULAR HEMOGLOBIN 28.4 pg (28.0-32.0); MEAN PLATELET VOLUME 9.2 fl (7.4-10.4); MONOCYTES % 12.1 % (2.0-8.0); NEUTROPHILS % 48.7 % (40.0-76.0); PLATELET 233 x1000/uL (130-400); RED BLOOD CELL COUNT 5.03 mill/uL (4.2-5.4); RED CELL DISTRIBUTION WIDTH 14.3 % (11.6-14.6)
[2020-05-12] MEDS ORDERED: ACETAMINOPHEN WITH CODEINE 300/30MG TABLET PO ONE (22:45)
[2020-05-13 02:33] VITALS: BP 109/78
== END 2020-05-13 02:34 | disposition home or self-care (01) ==
LOC: ER 18:59
DX: E11.65 Type 2 diabetes mellitus with hyperglycemia (principal); M54.12 Radiculopathy, cervical region; G62.9 Polyneuropathy, unspecified; J45.909 Unspecified asthma, uncomplicated; Z90.710 Acquired absence of both cervix and uterus; Z79.4 Long term (current) use of insulin; Z91.09 Other allergy status, other than to drugs and biological substances
CPT/HCPCS: 36415; 72040; 80048; 82962; 85025; 93005; 99285; J1815

== ENCOUNTER 2020-10-30 23:23 | Emergency (ER) | payer MEDICAID ==
[~2020-10-30] VITALS: Ht 162.6 cm; Wt 57.0 kg
[2020-10-31] MEDS ORDERED: SODIUM CHLORIDE 0.9% 1,000 ML IV ONE ×2 (00:15→02:00)
[2020-10-31 00:39] LABS: HEMATOCRIT. 43.7 % (36.0-48.0); HEMOGLOBIN. 13.9 g/dL (12.0-16.0); MEAN CORPUSCULAR HEMOGLOBIN 27.5 pg (28.0-32.0); MEAN CORPUSCULAR VOLUME 86.5 fL (81.0-99.0); MEAN PLATELET VOLUME 9.4 fl (7.4-10.4); PLATELET 263 x1000/uL (130-400); RED BLOOD CELL COUNT 5.06 mill/uL (4.2-5.4); RED CELL DISTRIBUTION WIDTH 14.1 % (11.6-14.6)
[2020-10-31 00:45] LABS: CHLORIDE 87 mEq/L (98-107)
[2020-10-31 00:52] LABS: ETHANOL BLOOD 96 mg/dL
[2020-10-31 01:01] LABS: BETA HYDROXYBUTYRATE 4.4 mMol/L (0.0-0.3)
[2020-10-31 01:50] LABS: PROTHROMBIN TIME 10.4 sec (9.6-11.0)
[2020-10-31] MEDS ORDERED: INSULIN LISPRO 100 UNITS/ML SUBCUT ONE (02:00)
[2020-10-31 02:38] LABS: CLARITY URINE CLEAR (CLEAR); COLOR URINE YELLOW (YELLOW); KETONES URINE 1+ (NEGATIVE); LEUKOCYTE ESTERASE URINE NEGATIVE (NEGATIVE); NITRITE URINE NEGATIVE (NEGATIVE); OCCULT BLOOD URINE NEGATIVE (NEGATIVE); PROTEIN URINE NEGATIVE (NEGATIVE); SPECIFIC GRAVITY URINE 1.033 (1.005-1.030); UROBILINOGEN URINE 0.2 E.U./dL (0.2-1.0)
[2020-10-31 02:48] LABS: METHADONE URINE SCREEN NEGATIVE (NEGATIVE); OPIATES URINE SCREEN NEGATIVE (NEGATIVE)
[2020-10-31 02:49] LABS: *AMPHETAMINES SCREEN URINE NEGATIVE (NEGATIVE); *BARBITURATES SCREEN URINE NEGATIVE (NEGATIVE); *BENZODIAZEPINES SCREEN URINE NEGATIVE (NEGATIVE); *COCAINE SCREEN URINE NEGATIVE (NEGATIVE); CANNABINOID URINE SCREEN NEGATIVE (NEGATIVE); PHENCYCLIDINE URINE SCREEN NEGATIVE (NEGATIVE)
[2020-10-31 04:46] VITALS: BP 136/82
[2020-10-31 07:54] LABS: ATYPICAL LYMPHOCYTES 4; PLATELET ESTIMATE NORMAL
== END 2020-10-31 04:54 | disposition home or self-care (01) ==
LOC: ER 23:23
DX: E11.65 Type 2 diabetes mellitus with hyperglycemia (principal); J45.909 Unspecified asthma, uncomplicated; Z79.899 Other long term (current) drug therapy; Z90.710 Acquired absence of both cervix and uterus
CPT/HCPCS: 36415; 71045; 80053; 80305; 80320; 81003; 82010; 82962; 83605; 83690; 85025; 85610; 93005; 96360; 96372; 99285; J1815; J7030; G0480

== ENCOUNTER 2021-04-21 11:46 | Emergency (ER) | payer MEDICAID ==
[~2021-04-21] VITALS: Ht 162.6 cm; Wt 56.0 kg
[2021-04-21] MEDS ORDERED: BACITRACIN ZINC OINT UDPKT TOP ONE (12:00)
[2021-04-21] MEDS ORDERED: IBUPROFEN 600MG TABLET PO STA (12:08)
[2021-04-21] MEDS ORDERED: IBUP-2029 PO (13:06)
[2021-04-21 13:12] VITALS: BP 137/69
== END 2021-04-21 14:25 | disposition home or self-care (01) ==
LOC: ER 11:46
DX: S80.02XA Contusion of left knee, initial encounter (principal); M19.90 Unspecified osteoarthritis, unspecified site; J45.909 Unspecified asthma, uncomplicated; E11.9 Type 2 diabetes mellitus without complications; Z79.84 Long term (current) use of oral hypoglycemic drugs; Z90.710 Acquired absence of both cervix and uterus; W01.0XXA Fall on same level from slipping, tripping and stumbling without subsequent striking against object, initial encounter; Y93.89 Activity, other specified; Y92.488 Other paved roadways as the place of occurrence of the external cause
CPT/HCPCS: 73562; 99283

== ENCOUNTER 2021-04-27 08:14 | Inpatient (IN) | payer MEDICAID ==
[~2021-04-27] VITALS: Ht 160 cm; Wt 54.7 kg
[~2021-04-27 08:14] MED LIST changes: +IBUP-2029 PO
[2021-04-27] MEDS ORDERED: LACTATED RINGERS 1,000 ML IV SCH (09:00)
[2021-04-27 09:53] LABS: BASOPHILS % 0.5 % (0.0-2.0); EOSINOPHILS % 0.3 % (0.0-5.0); HEMATOCRIT. 48.4 % (36.0-48.0); LYMPHOCYTES % 10.6 % (20.0-50.0); MEAN CORPUSCULAR HEMOGLOBIN 28.3 pg (28.0-32.0); MEAN CORPUSCULAR VOLUME 98.2 fL (81.0-99.0); MEAN PLATELET VOLUME 10.1 fl (7.4-10.4); MONOCYTES % 9.1 % (2.0-8.0); NEUTROPHILS % 79.5 % (40.0-76.0); PLATELET 282 x1000/uL (130-400); RED BLOOD CELL COUNT 4.93 mill/uL (4.2-5.4); RED CELL DISTRIBUTION WIDTH 15.9 % (11.6-14.6)
[2021-04-27 10:00] LABS: CHLORIDE 68 mEq/L (98-107)
[2021-04-27 10:04] LABS: ETHANOL BLOOD < 10 mg/dL; PROTHROMBIN TIME 10.9 sec (9.6-11.0)
[2021-04-27 10:13] LABS: HCG SCREEN NEGATIVE
[2021-04-27] MEDS ORDERED: INSULIN REGULAR (DRIP) 100 UNITS in SODIUM CHLORIDE 0.9% 100 ML IV NR ×2 (10:15→10:45)
[2021-04-27] MEDS ORDERED: SODIUM CHLORIDE 0.9% 1,000 ML IV ONE ×2 (10:15)
[2021-04-27] MEDS: BLOOD SUGAR DIAGNOSTIC STRIP TEST SCH ×10 (10:45→20:23)
[2021-04-27] MEDS ORDERED: DEXTROSE 50% WATER 50ML SYRINGE IV PRN ×2 (10:45)
[2021-04-27 13:50] LABS: CLARITY URINE CLOUDY (CLEAR); COLOR URINE YELLOW (YELLOW); KETONES URINE 3+ (NEGATIVE); LEUKOCYTE ESTERASE URINE 1+ (NEGATIVE); NITRITE URINE NEGATIVE (NEGATIVE); OCCULT BLOOD URINE 1+ (NEGATIVE); PROTEIN URINE NEGATIVE (NEGATIVE); SPECIFIC GRAVITY URINE 1.023 (1.005-1.030); UROBILINOGEN URINE 0.2 E.U./dL (0.2-1.0)
[2021-04-27] MEDS ORDERED: DEXTROSE 5% WATER 1,000 ML IV SCH (15:30)
[2021-04-27] MEDS ORDERED: HYDROCODONE/ACETAMINOPHEN 5/325MG TABLET PO PRN (15:30)
[2021-04-27] MEDS ORDERED: DOCUSATE SODIUM 100MG CAPSULE PO PRN (15:30)
[2021-04-27] MEDS ORDERED: ONDANSETRON HCL 4MG/2ML INJ IV PRN (15:30)
[2021-04-27] MEDS ORDERED: ACETAMINOPHEN 325MG TABLET PO PRN (15:30)
[2021-04-27] MEDS ORDERED: LORAZEPAM 0.5MG TABLET PO PRN (15:30)
[2021-04-27] MEDS ORDERED: IPRATROPIUM/ALBUTEROL 0.5-3(2.5)MG/3ML NEB HHN PRN (15:30)
[2021-04-27] MEDS ORDERED: CLONIDINE 0.1MG TABLET PO PRN (15:30)
[2021-04-27] MEDS ORDERED: INSULIN REGULAR (DRIP) 100 UNITS in SODIUM CHLORIDE 0.9% 100 ML IV SCH ×3 (15:30→17:30)
[2021-04-27] MEDS ORDERED: NALOXONE HCL 0.4MG/ML VIAL IV PRN (15:45)
[2021-04-27 15:52] LABS: BG BASE EXCESS -4.1 mmol/L (-2.0-2.0); BG DEOXYHEMOGLOBIN 3.8 % (0.0-5.0); BG FRACTION INSPIRED OXYGEN 21; BG HCO3 ACT 19.2 mmol/L (22.0-26.0); BG METHEMOGLOBIN 0.2 % (0.0-1.5); BG OXYGEN SATURATION 96.2 % (92.0-98.5); BG PCO2 30.3 mmHg (35.0-45.0); BG SAMPLE SITE RIGHT BRACHIAL; BG TOTAL HEMOGLOBIN 13.2 g/dL (12.0-18.0); BG VENT MODE ROOM AIR
[2021-04-27] MEDS ORDERED: INSULIN REGULAR (HUMULIN R) 300UNITS/3ML VIAL SUBCUT NR (16:00)
[2021-04-27 17:25] LABS: PHOSPHORUS 2.6 mg/dL (2.5-4.9)
[2021-04-28] MEDS: DEXT 5%/0.45% NACL 1000ML 1,000 ML IV SCH ×3 (01:41→10:57)
[2021-04-28] MEDS: ACETAMINOPHEN 325MG TABLET PO PRN ×2 (09:13→22:56)
[2021-04-28] MEDS ORDERED: DEXTROSE 50% WATER 50ML SYRINGE IV PRN ×2 (10:00)
[2021-04-28 10:07] LABS: BASOPHILS % 0.4 % (0.0-2.0); EOSINOPHILS % 0.1 % (0.0-5.0); HEMATOCRIT. 39.9 % (36.0-48.0); HEMOGLOBIN. 12.9 g/dL (12.0-16.0); LYMPHOCYTES % 10.2 % (20.0-50.0); MEAN CORPUSCULAR HEMOGLOBIN 27.5 pg (28.0-32.0); MEAN PLATELET VOLUME 8.7 fl (7.4-10.4); MONOCYTES % 10.5 % (2.0-8.0); NEUTROPHILS % 78.8 % (40.0-76.0); PLATELET 259 x1000/uL (130-400); RED BLOOD CELL COUNT 4.69 mill/uL (4.2-5.4); RED CELL DISTRIBUTION WIDTH 14.1 % (11.6-14.6)
[2021-04-28 10:20] LABS: CHLORIDE 103 mEq/L (98-107)
[2021-04-28 10:23] LABS: AMYLASE 560 IU/L (25-115)
[2021-04-28] MEDS: BLOOD SUGAR DIAGNOSTIC STRIP TEST SCH ×5 (10:35→14:06)
[2021-04-28] MEDS ORDERED: POTASSIUM CHLORIDE INJ 40 MEQ in DEXT 5% WATER 250 ML IV SCH (14:30)
[2021-04-28 15:43] LABS: CHLORIDE 104 mEq/L (98-107)
[2021-04-28 15:44] LABS: BASOPHILS % 0.4 % (0.0-2.0); EOSINOPHILS % 0.2 % (0.0-5.0); HEMATOCRIT. 38.2 % (36.0-48.0); HEMOGLOBIN. 12.5 g/dL (12.0-16.0); LYMPHOCYTES % 13.1 % (20.0-50.0); MEAN CORPUSCULAR HEMOGLOBIN 27.6 pg (28.0-32.0); MEAN CORPUSCULAR VOLUME 84.7 fL (81.0-99.0); MEAN PLATELET VOLUME 8.8 fl (7.4-10.4); MONOCYTES % 8.8 % (2.0-8.0); NEUTROPHILS % 77.5 % (40.0-76.0); PLATELET 246 x1000/uL (130-400); RED BLOOD CELL COUNT 4.52 mill/uL (4.2-5.4); RED CELL DISTRIBUTION WIDTH 14.3 % (11.6-14.6)
[2021-04-28 15:48] LABS: PHOSPHORUS 1.6 mg/dL (2.5-4.9)
[2021-04-28] MEDS ORDERED: INSULIN GLARGINE UD 100 UNITS/ML SYR SUBCUT SCH (22:00)
[2021-04-28 23:40] LABS: CHLORIDE 105 mEq/L (98-107)
[2021-04-29] VITALS (13 sets, daily range): BP systolic 119–148; BP diastolic 68–97
[2021-04-29] MEDS: DEXT 5%/0.45% NACL 1000ML 1,000 ML IV SCH ×4 (00:30→21:15)
[2021-04-29] MEDS ORDERED: DEXTROSE 50% WATER 50ML SYRINGE IV PRN (03:30)
[2021-04-29] MEDS: BLOOD SUGAR DIAGNOSTIC STRIP TEST SCH ×4 (06:00→21:00)
[2021-04-29] MEDS: INSULIN LISPRO (HIGH DOSE) 100 UNITS/ML SUBCUT SCH ×4 (07:20→21:16)
[2021-04-29] MEDS ORDERED: PNEUMOCOCCAL 23-VAL P-SAC VAC 0.5 ML IM ONE (08:00)
[2021-04-29 10:21] LABS: BASOPHILS % 0.6 % (0.0-2.0); EOSINOPHILS % 1.2 % (0.0-5.0); HEMATOCRIT. 39.3 % (36.0-48.0); HEMOGLOBIN. 12.7 g/dL (12.0-16.0); MEAN CORPUSCULAR HEMOGLOBIN 27.8 pg (28.0-32.0); MEAN CORPUSCULAR VOLUME 85.9 fL (81.0-99.0); MEAN PLATELET VOLUME 8.6 fl (7.4-10.4); MONOCYTES % 11.1 % (2.0-8.0); NEUTROPHILS % 66.1 % (40.0-76.0); PLATELET 222 x1000/uL (130-400); RED BLOOD CELL COUNT 4.57 mill/uL (4.2-5.4); RED CELL DISTRIBUTION WIDTH 14.5 % (11.6-14.6)
[2021-04-29 10:28] LABS: CHLORIDE 104 mEq/L (98-107)
[2021-04-29 10:57] LABS: CLARITY URINE TURBID (CLEAR); COLOR URINE YELLOW (YELLOW); KETONES URINE 3+ (NEGATIVE); LEUKOCYTE ESTERASE URINE TRACE (NEGATIVE); NITRITE URINE NEGATIVE (NEGATIVE); OCCULT BLOOD URINE NEGATIVE (NEGATIVE); PROTEIN URINE TRACE (NEGATIVE); SPECIFIC GRAVITY URINE 1.036 (1.005-1.030)
[2021-04-29] MEDS: POTASSIUM-SODIUM PHOSPHATE POWDER PACKET PO SCH ×2 (13:26→17:55)
[2021-04-29] MEDS: ACETAMINOPHEN 325MG TABLET PO PRN (16:05)
[2021-04-29] MEDS: HYDROCORTISONE ACETATE 25MG SUPP PR SCH (21:16)
[2021-04-29] MEDS ORDERED: INSULIN GLARGINE UD 100 UNITS/ML SYR SUBCUT SCH (22:00)
[2021-04-30] VITALS (9 sets, daily range): BP systolic 106–142; BP diastolic 72–89
[2021-04-30 06:08] LABS: CHLORIDE 104 mEq/L (98-107)
[2021-04-30 06:10] LABS: HEMATOCRIT. 36.9 % (36.0-48.0); MEAN CORPUSCULAR HEMOGLOBIN 27.6 pg (28.0-32.0); MEAN PLATELET VOLUME 8.9 fl (7.4-10.4); PLATELET 222 x1000/uL (130-400); RED BLOOD CELL COUNT 4.34 mill/uL (4.2-5.4); RED CELL DISTRIBUTION WIDTH 14.1 % (11.6-14.6)
[2021-04-30 06:16] LABS: PHOSPHORUS 2.7 mg/dL (2.5-4.9)
[2021-04-30] MEDS: DEXT 5%/0.45% NACL 1000ML 1,000 ML IV SCH ×2 (06:30→08:06)
[2021-04-30] MEDS: BLOOD SUGAR DIAGNOSTIC STRIP TEST SCH ×2 (06:30→11:20)
[2021-04-30] MEDS: INSULIN LISPRO (HIGH DOSE) 100 UNITS/ML SUBCUT SCH ×2 (08:06→12:37)
[2021-04-30] MEDS: POTASSIUM-SODIUM PHOSPHATE POWDER PACKET PO SCH (08:06)
[2021-04-30] MEDS: ACETAMINOPHEN 325MG TABLET PO PRN (09:49)
[2021-04-30] MEDS: HYDROCORTISONE ACETATE 25MG SUPP PR SCH (12:36)
[2021-04-30 20:23] LABS: PLATELET ESTIMATE NORMAL
== END 2021-04-30 16:45 | disposition home or self-care (01) | DRG 282 ==
LOC: ER 08:14 → MICUSO 12:31 → 3WST 04-28 19:30 → MICUSO 04-28 21:08 → EDBEDREQTM 04-29 02:09 → EDBEDREQSVC 04-29 02:09 → EDBEDREQDT 04-29 02:09 → 3WST 04-29 03:28
PROVIDERS: ADMIT Internal Medicine; ATTEND Internal Medicine
DX: K85.90 Acute pancreatitis without necrosis or infection, unspecified (principal); E10.10 Type 1 diabetes mellitus with ketoacidosis without coma; N17.9 Acute kidney failure, unspecified; E87.0 Hyperosmolality and hypernatremia; R16.0 Hepatomegaly, not elsewhere classified; E83.39 Other disorders of phosphorus metabolism; E10.43 Type 1 diabetes mellitus with diabetic autonomic (poly)neuropathy; E87.1 Hypo-osmolality and hyponatremia; K31.84 Gastroparesis; E87.8 Other disorders of electrolyte and fluid balance, not elsewhere classified; D18.00 Hemangioma unspecified site; D25.9 Leiomyoma of uterus, unspecified; D64.9 Anemia, unspecified; E86.9 Volume depletion, unspecified; J45.909 Unspecified asthma, uncomplicated; K21.9 Gastro-esophageal reflux disease without esophagitis; Z20.822 Contact with and (suspected) exposure to COVID-19; K64.4 Residual hemorrhoidal skin tags; E78.5 Hyperlipidemia, unspecified; K76.0 Fatty (change of) liver, not elsewhere classified; M19.90 Unspecified osteoarthritis, unspecified site; R00.0 Tachycardia, unspecified; E87.5 Hyperkalemia; E86.0 Dehydration; R19.7 Diarrhea, unspecified; Z79.4 Long term (current) use of insulin; Z90.710 Acquired absence of both cervix and uterus; Z91.19 Patient's noncompliance with other medical treatment and regimen; Z79.1 Long term (current) use of non-steroidal anti-inflammatories (NSAID); Z79.899 Other long term (current) drug therapy
CPT/HCPCS: 36415; 36600; 71045; 74176; 80048; 80053; 80320; 81003; 82010; 82150; 82270; 82375; 82805; 82962; 83036; 83605; 83735; 84100; 84145; 84484; 84703; 85025; 87106; 87426; 90732; 93005; 99291; J1815; J3480; J7050; J7060; G0480

== ENCOUNTER 2021-06-04 00:17 | Emergency (ER) | payer MEDICAID ==
[~2021-06-04] VITALS: Ht 162.6 cm; Wt 57.0 kg
[2021-06-04] MEDS ORDERED: FAMOTIDINE 20MG TABLET PO ONE (00:45)
[2021-06-04] MEDS ORDERED: AMOX1TAB16 MT (00:53)
[2021-06-04] MEDS ORDERED: OMEP20CA14 MT (00:53)
[2021-06-04 00:59] VITALS: BP 147/65
== END 2021-06-04 01:00 | disposition home or self-care (01) ==
LOC: ER 00:17
DX: J32.8 Other chronic sinusitis (principal); K21.9 Gastro-esophageal reflux disease without esophagitis; E10.9 Type 1 diabetes mellitus without complications; J45.909 Unspecified asthma, uncomplicated; Z87.19 Personal history of other diseases of the digestive system; Z79.4 Long term (current) use of insulin
CPT/HCPCS: 99282

== ENCOUNTER 2021-06-15 18:17 | Inpatient (IN) | payer MEDICAID ==
[~2021-06-15] VITALS: Ht 162.6 cm; Wt 54.9 kg
[~2021-06-15 18:17] MED LIST changes: +AMOX1TAB16 MT; +OMEP20CA14 MT
[2021-06-15] MEDS ORDERED: ONDANSETRON HCL 4MG/2ML INJ IV ONE (19:45)
[2021-06-15] MEDS ORDERED: SODIUM CHLORIDE 0.9% 1,000 ML IV ONE (19:45)
[2021-06-15 20:05] LABS: HEMATOCRIT. 46.7 % (36.0-48.0); HEMOGLOBIN. 13.6 g/dL (12.0-16.0); MEAN CORPUSCULAR HEMOGLOBIN 27.8 pg (28.0-32.0); MEAN CORPUSCULAR VOLUME 95.4 fL (81.0-99.0); PLATELET 465 x1000/uL (130-400); RED CELL DISTRIBUTION WIDTH 16.2 % (11.6-14.6)
[2021-06-15 20:11] LABS: CHLORIDE 77 mEq/L (98-107)
[2021-06-15] MEDS ORDERED: SODIUM CHLORIDE 0.9% 1000ML BAG (SEPSIS BOLUS) IV ONE (20:30)
[2021-06-15] MEDS ORDERED: INSULIN REGULAR (DRIP) 100 UNITS in SODIUM CHLORIDE 0.9% 100 ML IV ONE (20:30)
[2021-06-15] MEDS ORDERED: POTASSIUM-SODIUM PHOSPHATE POWDER PACKET PO ONE (20:30)
[2021-06-15 20:39] LABS: PLATELET ESTIMATE INCREASED
[2021-06-15 21:12] LABS: BETA HYDROXYBUTYRATE 14.7 mMol/L (0.0-0.3)
[2021-06-15 21:37] LABS: PHOSPHORUS 8.7 mg/dL (2.5-4.9)
[2021-06-15] MEDS ORDERED: CLONIDINE 0.1MG TABLET PO PRN (22:15)
[2021-06-15] MEDS ORDERED: ONDANSETRON HCL 4MG/2ML INJ IV PRN (22:15)
[2021-06-15] MEDS ORDERED: DEXTROSE 50% WATER 50ML SYRINGE IV PRN ×2 (22:15)
[2021-06-15] MEDS ORDERED: SODIUM BICARBONATE 8.4% 1 MEQ/ML 50ML SYR IV SCH (22:15)
[2021-06-15] MEDS ORDERED: IPRATROPIUM/ALBUTEROL 0.5-3(2.5)MG/3ML NEB HHN PRN (22:15)
[2021-06-15] MEDS ORDERED: MORPHINE SULFATE 2 MG/ML CPJ (NOT FOR IM USE) IV PRN (22:15)
[2021-06-15] MEDS ORDERED: ACETAMINOPHEN 325MG TABLET PO PRN (22:15)
[2021-06-15] MEDS ORDERED: MAGNESIUM/ALUMINUM HYDROXIDE/SIMETHICONE 30ML UDC PO PRN (22:15)
[2021-06-15] MEDS ORDERED: HYDROCODONE/ACETAMINOPHEN 5/325MG TABLET PO PRN (22:15)
[2021-06-15] MEDS ORDERED: GUAIFENESIN 200MG/10ML SUGAR FREE UDC PO PRN (22:15)
[2021-06-15] MEDS ORDERED: DIPHENHYDRAMINE 50MG/ML VIAL IV PRN (22:15)
[2021-06-15] MEDS ORDERED: HYDRALAZINE 20MG/ML VIAL IV PRN (22:15)
[2021-06-15] MEDS ORDERED: INSULIN REGULAR (DRIP) 100 UNITS in SODIUM CHLORIDE 0.9% 100 ML IV SCH (22:15)
[2021-06-15] MEDS ORDERED: DEXT 5%/0.45% NACL 1000ML 1,000 ML IV PRN (22:15)
[2021-06-15] MEDS ORDERED: LORAZEPAM 2MG/ML CPJ IV PRN (22:15)
[2021-06-15] MEDS ORDERED: DOCUSATE SODIUM 100MG CAPSULE PO PRN (22:15)
[2021-06-15] MEDS ORDERED: SODIUM CHLORIDE 0.45% 1,000 ML IV SCH (23:00)
[2021-06-15] MEDS: BLOOD SUGAR DIAGNOSTIC STRIP TEST SCH (23:03)
[2021-06-16] VITALS (54 sets, daily range): BP systolic 79–119; BP diastolic 48–78
[2021-06-16] MEDS ORDERED: INSULIN REGULAR (DRIP) 100 UNITS in SODIUM CHLORIDE 0.9% 100 ML IV SCH
[2021-06-16] MEDS: BLOOD SUGAR DIAGNOSTIC STRIP TEST SCH ×23 (00:21→23:00)
[2021-06-16] MEDS: DEXT 5%/0.45% NACL 1000ML 1,000 ML IV SCH ×2 (03:09→10:15)
[2021-06-16 05:48] LABS: BASOPHILS % 0.3 % (0.0-2.0); HEMATOCRIT. 38.1 % (36.0-48.0); HEMOGLOBIN. 12.4 g/dL (12.0-16.0); LYMPHOCYTES % 10.9 % (20.0-50.0); MEAN CORPUSCULAR HEMOGLOBIN 27.5 pg (28.0-32.0); MEAN CORPUSCULAR VOLUME 84.4 fL (81.0-99.0); MONOCYTES % 13.1 % (2.0-8.0); NEUTROPHILS % 75.7 % (40.0-76.0); PLATELET 464 x1000/uL (130-400); RED BLOOD CELL COUNT 4.51 mill/uL (4.2-5.4)
[2021-06-16 05:54] LABS: CHLORIDE 106 mEq/L (98-107)
[2021-06-16] MEDS ORDERED: SODIUM CHLORIDE 0.9% INJ 3ML FLUSH IVF SCH (06:00)
[2021-06-16] MEDS ORDERED: NALOXONE HCL 0.4MG/ML VIAL IV PRN (08:00)
[2021-06-16] MEDS: ENOXAPARIN 40MG/0.4ML SYR SUBCUT SCH (09:44)
[2021-06-16] MEDS ORDERED: INFLUENZA VACCINE 05/PF 0.5 ML SYRINGE IM ONE (12:00)
[2021-06-16 19:58] LABS: CLARITY URINE TURBID (CLEAR); COLOR URINE YELLOW (YELLOW); KETONES URINE 2+ (NEGATIVE); LEUKOCYTE ESTERASE URINE 2+ (NEGATIVE); NITRITE URINE NEGATIVE (NEGATIVE); OCCULT BLOOD URINE NEGATIVE (NEGATIVE); PROTEIN URINE TRACE (NEGATIVE); SPECIFIC GRAVITY URINE 1.022 (1.005-1.030); UROBILINOGEN URINE 0.2 E.U./dL (0.2-1.0)
[2021-06-16 20:17] LABS: CHLORIDE 105 mEq/L (98-107)
[2021-06-16 20:20] LABS: CANNABINOID URINE SCREEN NEGATIVE (NEGATIVE); METHADONE URINE SCREEN NEGATIVE (NEGATIVE); OPIATES URINE SCREEN NEGATIVE (NEGATIVE); PHENCYCLIDINE URINE SCREEN NEGATIVE (NEGATIVE)
[2021-06-16 20:21] LABS: *AMPHETAMINES SCREEN URINE NEGATIVE (NEGATIVE); *BARBITURATES SCREEN URINE NEGATIVE (NEGATIVE); *BENZODIAZEPINES SCREEN URINE NEGATIVE (NEGATIVE); *COCAINE SCREEN URINE NEGATIVE (NEGATIVE)
[2021-06-16] MEDS ORDERED: POTASSIUM CHLORIDE INJ 40 MEQ in DEXT 5% WATER 250 ML IV SCH (22:00)
[2021-06-17] VITALS (51 sets, daily range): BP systolic 80–140; BP diastolic 52–94
[2021-06-17] MEDS: BLOOD SUGAR DIAGNOSTIC STRIP TEST SCH ×24 (01:00→23:00)
[2021-06-17] MEDS: DEXT 5%/0.45% NACL 1000ML 1,000 ML IV SCH ×2 (02:12→10:15)
[2021-06-17 06:13] LABS: CHLORIDE 101 mEq/L (98-107)
[2021-06-17 06:19] LABS: PHOSPHORUS 1.7 mg/dL (2.5-4.9)
[2021-06-17] MEDS ORDERED: POTASSIUM-SODIUM PHOSPHATE POWDER PACKET PO SCH (12:30)
[2021-06-17] MEDS: ENOXAPARIN 40MG/0.4ML SYR SUBCUT SCH (12:53)
[2021-06-18] VITALS (39 sets, daily range): BP systolic 90–135; BP diastolic 52–95
[2021-06-18] MEDS: BLOOD SUGAR DIAGNOSTIC STRIP TEST SCH ×10 (01:00→11:55)
[2021-06-18] MEDS: DEXT 5%/0.45% NACL 1000ML 1,000 ML IV SCH ×2 (02:15→04:26)
[2021-06-18 05:41] LABS: HEMATOCRIT. 36.3 % (36.0-48.0); HEMOGLOBIN. 11.6 g/dL (12.0-16.0); MEAN CORPUSCULAR HEMOGLOBIN 27.5 pg (28.0-32.0); MEAN CORPUSCULAR VOLUME 86.1 fL (81.0-99.0); RED BLOOD CELL COUNT 4.22 mill/uL (4.2-5.4); RED CELL DISTRIBUTION WIDTH 15.4 % (11.6-14.6)
[2021-06-18] MEDS: ENOXAPARIN 40MG/0.4ML SYR SUBCUT SCH (09:24)
[2021-06-18] MEDS ORDERED: DEXTROSE 50% WATER 50ML SYRINGE IV PRN (10:15)
[2021-06-18] MEDS ORDERED: SODIUM CHLORIDE 0.45% 1,000 ML IV SCH (10:15)
[2021-06-18] MEDS ORDERED: INSULIN GLARGINE UD 100 UNITS/ML SYR SUBCUT SCH (11:00)
[2021-06-18] MEDS: POLYVINYL ALCOHOL OPHTH DROPS 15ML BOTHEYE SCH ×2 (12:33→16:00)
[2021-06-18] MEDS ORDERED: INSULIN LISPRO 100 UNITS/ML SUBCUT SCH (13:00)
[2021-06-18] MEDS ORDERED: LOPERAMIDE HCL 2MG CAPSULE PO NR (16:15)
[2021-06-18 18:14] LABS: NUCLEATED RED BLOOD CELLS 1 /100 WBC
== END 2021-06-18 18:16 | disposition home or self-care (01) | DRG 420 ==
LOC: ER 18:17 → MICUSO 21:51 → MICUNO 06-16 00:11 → 5EST 06-18 07:30
PROVIDERS: ADMIT Internal Medicine; ATTEND Internal Medicine
DX: E10.10 Type 1 diabetes mellitus with ketoacidosis without coma (principal); N17.0 Acute kidney failure with tubular necrosis; K85.90 Acute pancreatitis without necrosis or infection, unspecified; E87.0 Hyperosmolality and hypernatremia; R65.10 Systemic inflammatory response syndrome (SIRS) of non-infectious origin without acute organ dysfunction; I95.9 Hypotension, unspecified; E83.39 Other disorders of phosphorus metabolism; E83.41 Hypermagnesemia; K21.9 Gastro-esophageal reflux disease without esophagitis; E86.0 Dehydration; J45.909 Unspecified asthma, uncomplicated; N39.0 Urinary tract infection, site not specified; Z90.710 Acquired absence of both cervix and uterus; Z91.048 Other nonmedicinal substance allergy status; Z79.899 Other long term (current) drug therapy
CPT/HCPCS: 36415; 80048; 80053; 80305; 81003; 82010; 82962; 83036; 83735; 84100; 85025; 99285; J1200; J1650; J1815; J2405; J3480; J3490; J7030; J7050; J7060; A4315